=== PATIENT | female | born 1965 | race African-American/Black ===

== ENCOUNTER 2021-02-07 18:14 | Emergency (ER) | payer MEDICAID ==
[~2021-02-07] VITALS: Ht 154.9 cm; Wt 85.0 kg
[2021-02-07 18:21] VITALS: BP 170/93
== END 2021-02-07 22:10 | disposition home or self-care (01) ==
LOC: ER 18:14
DX: R07.9 Chest pain, unspecified (principal); M25.511 Pain in right shoulder; Z98.84 Bariatric surgery status; V89.2XXA Person injured in unspecified motor-vehicle accident, traffic, initial encounter; Y93.9 Activity, unspecified; Y92.410 Unspecified street and highway as the place of occurrence of the external cause
CPT/HCPCS: 71045; 73030; 73562; 93005; 99284

== ENCOUNTER 2021-06-28 03:59 | Emergency (ER) | payer MEDICAID ==
[~2021-06-28] VITALS: Ht 154.9 cm; Wt 79.4 kg
[2021-06-28 04:11] VITALS: BP 178/80
[2021-06-28] MEDS ORDERED: KETOROLAC 30MG/ML VIAL IV STA (04:28)
[2021-06-28] MEDS ORDERED: SODIUM CHLORIDE 0.9% 1,000 ML IV ONE (04:30)
[2021-06-28] MEDS ORDERED: ONDANSETRON HCL 4MG/2ML INJ IV ONE (04:30)
[2021-06-28 06:17] LABS: BASOPHILS % 0.4 % (0.0-2.0); EOSINOPHILS % 1.8 % (0.0-5.0); HEMATOCRIT. 37.7 % (36.0-48.0); HEMOGLOBIN. 12.8 g/dL (12.0-16.0); LYMPHOCYTES % 28.4 % (20.0-50.0); MEAN CORPUSCULAR HEMOGLOBIN 30.2 pg (28.0-32.0); MEAN CORPUSCULAR VOLUME 88.9 fL (81.0-99.0); MONOCYTES % 8.5 % (2.0-8.0); NEUTROPHILS % 60.9 % (40.0-76.0); PLATELET 145 x1000/uL (130-400); RED BLOOD CELL COUNT 4.25 mill/uL (4.2-5.4); RED CELL DISTRIBUTION WIDTH 14.1 % (11.6-14.6)
[2021-06-28 06:24] LABS: CHLORIDE 108 mEq/L (98-107)
[2021-06-28 06:34] LABS: ETHANOL BLOOD < 10 mg/dL
== END 2021-06-28 10:20 | disposition left against medical advice (07) ==
LOC: ER 03:59
DX: R10.9 Unspecified abdominal pain (principal); R11.10 Vomiting, unspecified; R19.7 Diarrhea, unspecified; Z98.84 Bariatric surgery status
CPT/HCPCS: 36415; 71045; 80053; 80320; 83690; 85025; 99284; J7030; G0480

== ENCOUNTER 2022-05-04 12:56 | Emergency (ER) | payer MEDICAID ==
[~2022-05-04] VITALS: Ht 157.5 cm; Wt 57.0 kg
[2022-05-04 13:06] VITALS: BP 189/81
[2022-05-04] MEDS ORDERED: LIDOCAINE 5% PATCH TOP ONE (13:45)
[2022-05-04] MEDS ORDERED: ACETAMINOPHEN 325MG TABLET PO ONE (13:45)
[2022-05-04] MEDS ORDERED: LIDO700A15 TP (15:17)
[2022-05-04] MEDS ORDERED: ACET-2708 MT (15:17)
[2022-05-04] MEDS ORDERED: BACL-141 MT (15:17)
== END 2022-05-04 15:45 | disposition home or self-care (01) ==
LOC: ER 13:15
DX: S43.51XA Sprain of right acromioclavicular joint, initial encounter (principal); S13.4XXA Sprain of ligaments of cervical spine, initial encounter; M79.651 Pain in right thigh; I10 Essential (primary) hypertension; V43.52XA Car driver injured in collision with other type car in traffic accident, initial encounter; Y93.89 Activity, other specified; Y92.410 Unspecified street and highway as the place of occurrence of the external cause; Z98.84 Bariatric surgery status
CPT/HCPCS: 73030; 73552; 99284

== ENCOUNTER 2024-11-02 07:32 | Emergency (ER) | payer MEDICAID ==
[~2024-11-02] VITALS: Ht 152.4 cm; Wt 81.6 kg
[~2024-11-02 07:32] MED LIST: ACET-2708 MT; BACL-141 MT; LIDO-53 TP
[2024-11-02 07:35] VITALS: O2SAT 98
[2024-11-02 08:38] LABS: BASOPHILS % 0.7 % (0.0-2.0); EOSINOPHILS % 4.6 % (0.0-5.0); HEMATOCRIT. 38.5 % (36.0-48.0); HEMOGLOBIN. 12.5 g/dL (12.0-16.0); LYMPHOCYTES % 29.6 % (20.0-50.0); MEAN PLATELET VOLUME 8.2 fl (7.4-10.4); MONOCYTES % 5.7 % (2.0-8.0); NEUTROPHILS % 59.4 % (40.0-76.0); PLATELET 208 x1000/uL (130-400); RED BLOOD CELL COUNT 4.29 mill/uL (4.2-5.4); RED CELL DISTRIBUTION WIDTH 14.9 % (11.6-14.6)
[2024-11-02] MEDS: METOCLOPRAMIDE HCL 10MG/2ML VIAL IV ONE (08:39)
[2024-11-02] MEDS: KETOROLAC 15MG/ML VIAL IV ONE (08:40)
[2024-11-02] MEDS: LACTATED RINGERS 1,000 ML IV SCH (08:45)
[2024-11-02 08:52] LABS: CREATININE 1.0 mg/dL (0.6-1.0); UREA NITROGEN BLOOD 18 mg/dL (9-23)
[2024-11-02 09:35] VITALS: BP 141/75; PULSE 57; RESP 16; TEMP 37.1; O2SAT 100
== END 2024-11-02 09:37 | disposition home or self-care (01) ==
LOC: ER 07:32
DX: R51.9 Headache, unspecified (principal); I10 Essential (primary) hypertension; Z79.899 Other long term (current) drug therapy; Z98.890 Other specified postprocedural states
CPT/HCPCS: 80048; 85025; 36415; 70450; 96361; 96374; 96375; 99285; J1885; J2765; Z7610